=== PATIENT | male | born 1995 | race Caucasian/White ===

== ENCOUNTER → 2017-05-19 | Outpatient (CLI) | payer BC ==
[2017-05-19 18:19] LABS: Rheumatoid Factor, Qnt <9 IU/mL (<12)
[2017-05-19 18:20] LABS: ALT 41 U/L (21-72); AST 36 U/L (17-59); C Reactive Protein 7.1 mg/L (<10.0)
[2017-05-19 18:23] LABS: Basophils # (A) 0.1 k/uL (0-0.2); Basophils % (A) 1 %; CH 30.4; CHCM 34.9; Eosinophils # (A) 0.1 k/uL (0-0.7); Eosinophils % (A) 2 %; HCT 46.4 % (39.0-53.0); HDW 2.94; HGB 15.4 gm/dL (13.0-17.5); Luc # (Auto) 0.14; Luc % (Auto) 2; Lymphocytes % (A) 31 %; MCH 29.1 pg (25.0-35.0); MCHC 33.1 g/dL (31.0-37.0); MCV 87.7 fL (80.0-100.0); Mean Platelet Volume 8.5; Monocytes # (A) 0.5 k/uL (0-1.0); Monocytes % (A) 7 %; Neutrophils # (A) 3.7 k/uL (1.3-7.7); Neutrophils % (A) 57 %; RBC 5.29 m/uL (4.30-5.90); RDW 14.6 % (11.5-15.5); WBC 6.5 k/uL (3.8-10.6); WBC (Perox) 6.15
[2017-05-19 20:33] LABS: Erythrocyte Sedimentation Rate 8 mm/hr (0-15)
[2017-05-20 07:16] LABS: EBV - VCA IgM 98.8 U/mL (<36.0)
== END | disposition home or self-care (01) ==
LOC: LABWHC1 16:40
PROVIDERS: ATTEND Nurse Practitioner Family
DX: R51 Headache (principal); R53.83 Other fatigue; R53.81 Other malaise; R21 Rash and other nonspecific skin eruption
CPT/HCPCS: 36415; 82108; 83655; 83825; 84450; 84460; 85025; 85652; 86038; 86140; 86225; 86235; 86308; 86431; 86618; 86665

== ENCOUNTER → 2018-02-09 | Outpatient (CLI) | payer BC ==
--- NOTE | 2018-02-09 14:51 | CT ---
EXAMINATION TYPE: CT brain wo/w con DATE OF EXAM: 02/09/2018 COMPARISON: CT brain March 02, 2016 HISTORY: Headache CT DLP: 2008.20 mGycm Automated Exposure Control for Dose Reduction was Utilized. TECHNIQUE: CT scan of the head is performed without and with IV Contrast, patient injected with 100 m l mL of Isovue 300. FINDINGS: Noncontrast images show no acute intracranial hemorrhage or midline shift. The ventricles and sulci are within normal limits in size. Suazo-white matter differentiation is maintained. Postcon trast images show no suspicious enhancing intraparenchymal mass. The globes are intact and the visual ized sinuses are clear. The calvarium is intact. IMPRESSION: Unremarkable study.
--- NOTE | 2018-02-09 14:55 | CT ---
EXAMINATION TYPE: CT soft tissue neck w con DATE OF EXAM: 02/09/2018 HISTORY: Localized swelling, mass and lump COMPARISON: NONE CT DLP: 442.20 mGycm. Automated Exposure Control for Dose Reduction was Utilized. TECHNIQUE: CT scan of the neck is performed with IV Contrast, patient injected with 100 ml mL of Iso chandrakant 300, axial images are obtained, coronal and sagittal reformatted images are reviewed. FINDINGS: Metallic BB is placed at level of palpable abnormality left neck axial image 48. There is prominent d raining vessel overlying sternocleidomastoid mastoid muscle at this level presumed draining external vein. No worrisome solid or cystic mass or fluid collection is present. Metallic BB is placed over th e right neck just superior to this inferior aspect of right parotid gland without worrisome solid or cystic mass or fluid collection seen on axial image 59. There is nonopacified superficial vessel at t his level with additional nonopacified superficial vessels in the right neck are identified, most lik edy related to phase of imaging, thrombus unlikely but not excluded. Airway: No gross abnormality seen. Parotid/submandibular glands: No gross abnormality seen. Carotid/Vascular Structures: No suspicious abnormality is seen. Osseous Structures: Underlying dextroconvex scoliosis centered lower cervical spine is present. Other: There are prominent but subcentimeter lymph nodes scattered throughout the neck bilaterally. N o suspicious greater than 1 cm adenopathy is noted. IMPRESSION: No suspicious mass or fluid collection is identified.
== END ==
LOC: RADCTMAIN 13:52
PROVIDERS: ATTEND Otolaryngology
DX: R51 Headache (principal); R22.1 Localized swelling, mass and lump, neck; M54.2 Cervicalgia
CPT/HCPCS: 70491; 70470; Q9967

== ENCOUNTER → 2018-02-19 | Outpatient (CLI) | payer BC ==
--- NOTE | 2018-02-20 00:12 | MR ---
EXAMINATION TYPE: MR neck wo/w con DATE OF EXAM: 02/19/2018 COMPARISON: NONE HISTORY: Localized swelling and mass and lump CONTRAST: Standard multiplanar, multisequence MRI departmental protocol utilizing 7.5 mL intravenous gadolinium contrast. FINDINGS: Thyroid gland is symmetric. I see no superior mediastinal adenopathy. There is no evidence of a pharyngeal mass. Epiglottis appears normal. The parotid glands are symmetric. Submandibular sali vary glands are symmetric. There is enlarged right submandibular lymph node measures 20 x 9 mm. There is left submandibular lymph node that measures 16 x 6 mm. The adenoids and tonsils appear normal. Th ere are a few bilateral anterior triangle cervical lymph nodes that measure up to 12 x 8 mm. There are posterior triangle cervical lymph nodes that measure up to 9 x 4 mm. IMPRESSION: Bilateral cervical and submandibular lymph nodes.
== END | disposition home or self-care (01) ==
LOC: RADMRIMAIN 20:05
PROVIDERS: ATTEND Otolaryngology
DX: R22.1 Localized swelling, mass and lump, neck (principal); R07.0 Pain in throat
CPT/HCPCS: 70543; A9581

== ENCOUNTER → 2018-02-28 | Outpatient (CLI) | payer BC | END | disposition home or self-care (01) | LOC: LABWHC1 13:16 | PROVIDERS: ATTEND Otolaryngology | DX: J30.89 Other allergic rhinitis (principal) | CPT/HCPCS: 36415 ==

== ENCOUNTER 2018-03-12 09:07 | Day surgery (SDC) | payer BC ==
[2018-03-12 09:23] VITALS: BP 138/67; PULSE 62; RESP 20; TEMP 98
--- NOTE | 2018-03-12 11:02 | US ---
ULTRASOUND GUIDED FNA RIGHT NECK LYMPH NODE BIOPSY: CLINICAL HISTORY: Right lymph node neck mass FINDINGS: The procedure was explained to the patient. The risks, complications, benefits and alternatives were discussed and any questions were answered. Informed consent was obtained. Patient was placed supin e on the ultrasound table and prepped and draped in the usual sterile fashion. Utilizing a 25 gauge needle, five passes were made into the requested right sided lymph node. Patient was stable throughout the procedure. Pathology is pending. All elements of maximal barrier and sterile technique were utilized. IMPRESSION: 1. Successful ultrasound guided FNA biopsy.
== END 2018-03-13 10:35 | disposition home or self-care (01) ==
LOC: RADPROMAIN 09:07
PROVIDERS: ATTEND Otolaryngology
DX: R59.0 Localized enlarged lymph nodes (principal)
CPT/HCPCS: 10022; 76942; 88305

== ENCOUNTER → 2018-03-29 | Outpatient (CLI) | payer BC ==
[2018-03-29 16:54] LABS: Basophils % (A) 0 %; Eosinophils # (A) 0.2 k/uL (0-0.7); Eosinophils % (A) 2 %; HCT 44.7 % (39.0-53.0); HGB 15.3 gm/dL (13.0-17.5); Lymphocytes % (A) 26 %; MCH 28.1 pg (25.0-35.0); MCHC 34.1 g/dL (31.0-37.0); MCV 82.4 fL (80.0-100.0); Monocytes # (A) 0.5 k/uL (0-1.0); Monocytes % (A) 6 %; Neutrophils % (A) 64 %; Platelet Count 231 k/uL (150-450); RBC 5.43 m/uL (4.30-5.90); RDW 13.1 % (11.5-15.5); WBC 7.8 k/uL (3.8-10.6)
[2018-03-29 17:06] LABS: ALT 35 U/L (21-72); AST 28 U/L (17-59); Albumin 4.8 g/dL (3.5-5.0); Alkaline Phosphatase 76 U/L (38-126); Anion Gap 8 mmol/L; Blood Urea Nitrogen 16 mg/dL (9-20); Calcium 9.6 mg/dL (8.4-10.2); Carbon Dioxide 29 mmol/L (22-30); Chloride 104 mmol/L (98-107); Glucose 99 mg/dL (74-99); Potassium 4.7 mmol/L (3.5-5.1); Sodium 141 mmol/L (137-145); Total Bilirubin 0.3 mg/dL (0.2-1.3); Total Protein 7.6 g/dL (6.3-8.2)
[2018-03-29 18:12] LABS: Erythrocyte Sedimentation Rate 7 mm/hr (0-15)
[2018-03-30 00:56] LABS: Hepatitis A Antibody IgM Non-Reactive (Non-Reactive); Hepatitis B Core IgM Non-Reactive (Non-Reactive)
[2018-03-30 01:45] LABS: HIV AB P24 Non-Reactive (Non-Reactive); HIV P24 AG Non-Reactive (Non-Reactive)
== END | disposition home or self-care (01) ==
LOC: LABWHC1 16:23
PROVIDERS: ATTEND Internal Medicine Infectious Disease
DX: R50.9 Fever, unspecified (principal)
CPT/HCPCS: 36415; 80053; 80074; 85025; 85652; 86038; 87390